=== PATIENT | male | born 1970 | race Caucasian/White ===

== ENCOUNTER 2016-09-17 18:08 | Emergency (ER) | payer BC ==
--- NOTE | 2016-09-17 19:09 | C.PDOC ---
History Of Present Illness Patient is a 45 year old male who presents to the ER with a complaint of numbness to the right side of his body. Patient states he is diabetic but is not currently on any medication. Denies headache, weakness, HTN or heart problems. Chief Complaint (Nursing): Weakness/Neurological Deficit History Per: Patient History/Exam Limitations: no limitations Onset/Duration Of Symptoms: Days Current Symptoms Are (Timing): Still Present Current Diabetic Medications: None Causative (Exacerbating) Factor(s): Other (Not known) Associated Infectious Symptoms: denies: Other (Headache, Weakness) Recent travel outside of the [place]: No Past Medical History Reviewed: Historical Data, Nursing Documentation, Vital Signs Vital Signs: Last Vital Signs Temp 98.1 F 09/17/16 18:12 Pulse 69 09/17/16 21:48 Resp 20 09/17/16 19:56 BP 154/101 H 09/17/16 21:48 Pulse Ox 100 09/17/16 21:48 - Medical History PMH: No Chronic Diseases Surgical History: No Surg Hx Family History: States: Unknown Family Hx - Social History Hx Alcohol Use: Yes Hx Substance Use: No - Immunization History Hx Tetanus Toxoid Vaccination: No Hx Influenza Vaccination: No Hx Pneumococcal Vaccination: No Review Of Systems Constitutional: Negative for: Fever, Chills Gastrointestinal: Negative for: Nausea, Vomiting Neurological: Positive for: Numbness. Negative for: Weakness, Headache Physical Exam - Physical Exam Appears: Non-toxic, No Acute Distress Skin: Normal Color, Warm, Dry Head: Atraumatic, Normacephalic Oral Mucosa: Moist Neck: Normal, Supple Chest: Symmetrical, No Tenderness Cardiovascular: Rhythm Regular, No Murmur Respiratory: Normal Breath Sounds, No Rales, No Rhonchi, No Wheezing Gastrointestinal/Abdominal: Soft, No Tenderness Neurological/Psych: Oriented x3, Normal Speech, Normal Cognition, Other (No focal deficits) ED Course And Treatment - Laboratory Results Result Diagrams: 09/17/16 19:20 09/17/16 19:20 ECG: Interpreted By Me, Viewed By Me ECG Rhythm: Sinus Rhythm ECG Interpretation: No Acute Changes Interpretation Of ECG: NSR, IRBBB, LVH< borderline tracings Rate From EC O2 Sat by Pulse Oximetry: 98 (Room air) Pulse Ox Interpretation: Normal - CT Scan/US Head CT Other Rad Studies (CT/US): Read By Radiologist, Radiology Report Reviewed CT/US Interpretation: EXAM: CT Head Without Intravenous Contrast. CLINICAL HISTORY: 45 years old, male; Signs and symptoms; Numbness / parasthesia; Left; Additional info: Headache. TECHNIQUE: Axial computed tomography images of the head/brain without intravenous contrast. This CT exam. was performed using one or more of the following dose reduction techniques: automated exposure. control , adjustment of the mA and/or kV according to patient size, and/or use of iterative. reconstruction technique. COMPARISON: No relevant prior studies available. FINDINGS: Brain: There is mild diffuse cerebral atrophy present, slightly out of proportion to patient's age. The. brain is otherwise unremarkable. Normal mcknight-white matter differentiation is present, without acute. hemorrhage, or mass. Ventricles: Unremarkable. No ventriculomegaly. Bones/joints: Unremarkable. No acute fracture. Soft tissues: Unremarkable. Sinuses: Unremarkable as visualized. No acute sinusitis. Mastoid air cells: Unremarkable as visualized. No mastoid effusion. IMPRESSION: No acute intracranial process. No signs of bleed or infarction. Out of proportion to age cerebral. volume loss. Progress Note: Head CT, EKG and blood work ordered. Disposition Counseled Patient/Family Regarding: Diagnosis - Disposition Referrals: [facility] [Outside] Disposition: HOME/ ROUTINE Disposition Time: 21:51 Condition: STABLE Prescriptions: metFORMIN [glucOPHAGE] 500 mg PO DAILY #20 tab Instructions: Diabetes Mellitus Type 2 in Adults (ED), Hypertension (ED) Forms: Gen Discharge Inst Ug[place]an Print Language: SWEDISH - POA Present On Arrival: None - Clinical Impression Clinical Impression: Diabetes mellitus, Hypertension - Scribe Statement The provider has reviewed the documentation as recorded by the Micki Kruse All medical record entries made by the Coreyibjeremiah were at my direction and personally dictated by me. I have reviewed the chart and agree that the record accurately reflects my personal performance of the history, physical exam, medical decision making, and the department course for this patient. I have also personally directed, reviewed, and agree with the discharge instructions and disposition.
[2016-09-17 19:30] LABS: BASO # 0.1 K/uL (0.0-0.2); BASO % 1.3 % (0.0-2.0); EOS # 0.3 K/uL (0.0-0.7); EOS % 5.2 % (0.0-4.0); LYMPH # 1.7 K/uL (1.0-4.3); MEAN CELL VOLUME 82.8 fL (80.0-94.0); MEAN CORPUSCULAR HEMOGLOBIN 28.8 pg (27.0-31.0); MEAN CORPUSCULAR HGB CONC 34.8 g/dL (33.0-37.0); MONO # 0.3 K/uL (0.0-0.8); MONO % 6.3 % (0.0-10.0); NEUT # 2.6 K/uL (1.8-7.0); NEUT % 52.2 % (50.0-75.0); NRBC % 0.1 % (0.0-2.0); RBC 4.17 Mil/uL (4.40-5.90); RED CELL DISTRIBUTION WIDTH 12.8 % (11.5-14.5); WHITE BLOOD COUNT 4.9 K/uL (4.8-10.8)
[2016-09-17 19:39] LABS: ALBUMIN 3.6 g/dL (3.5-5.0)
[2016-09-17 19:42] LABS: ALB/GLOB RATIO 1.1 (1.0-2.1)
[2016-09-17 19:43] LABS: CALCIUM 8.9 mg/dl (8.6-10.4)
[2016-09-17 19:57] VITALS: RESP 20
[2016-09-17] MEDS ORDERED: (Novolin R) Insulin Human Regular 100 units/ml vial SC ONE (20:14)
[2016-09-17] MEDS ORDERED: (Novolin R) Insulin Human Regular 100 units/ml vial ONE (20:22)
[2016-09-17 21:50] VITALS: BP 154/101; PULSE 69
[2016-09-17 21:56] VITALS: O2SAT 98
[2016-09-17 22:04] VITALS: TEMP 98.2
--- NOTE | 2016-09-18 08:17 | CT ---
PROCEDURE: CT HEAD WITHOUT CONTRAST. HISTORY: Headache COMPARISON: None available. TECHNIQUE: Axial computed tomography images were obtained through the head/brain without intravenous contrast. Radiation dose: Total exam DLP = 823 mGy-cm. This CT exam was performed using one or more of the following dose reduction techniques: Automated exposure control, adjustment of the mA and/or kV according to patient size, and/or use of iterative reconstruction technique. FINDINGS: HEMORRHAGE: No intracranial hemorrhage. BRAIN: No mass effect or edema. Scattered focal lucencies in the subcortical and periventricular white matter suggestive for chronic microvascular ischemic change. Mild diffuse cerebral atrophy present, slightly out of proportion to the patient's age. VENTRICLES: Unremarkable. No hydrocephalus. CALVARIUM: Unremarkable. PARANASAL SINUSES: Unremarkable as visualized. No significant inflammatory changes. MASTOID AIR CELLS: Unremarkable as visualized. No inflammatory changes. OTHER FINDINGS: None. IMPRESSION: No acute intracranial abnormality. Chronic microvascular ischemic change. Diffuse cerebral atrophy present, slightly out of proportion to the patient's age. If symptoms persists, consider further evaluation with MRI. These findings were preliminarily reported at 7:32 p.m. on 09/17/[address] Matt Greene from [facility].
--- NOTE | 2016-09-19 06:38 | CARD ---
APPROVED REPORT EKG Measurement Heart [id number] <Conclusion> Normal sinus rhythm Minimal voltage criteria for LVH, may be normal variant Borderline ECG
== END 2016-09-17 22:04 | disposition home or self-care (01) ==
LOC: C.ER 18:08
DX: I10 Essential (primary) hypertension (principal); E11.9 Type 2 diabetes mellitus without complications; Z79.84 Long term (current) use of oral hypoglycemic drugs